=== PATIENT | male | born 1955 | race Asian ===

== ENCOUNTER → 2018-05-09 19:43 | Emergency (ER) | payer SELFPAY ==
[~2018-05-09 19:43] MED LIST: Aspirin 81 mg CHEW TAB* 81 MG TAB.CHEW PO ONE; Iohexol 350* (CONTRAST) 500 ML MDV IV ONE; Labetalol IV* 5 MG/ML 20 ML VIAL IV PUSH ONE; NS 0.9% 1000 ML* 1,000 ML IV ONE; diPHENhydraMINE IV* 50 MG/ML 1 ml VIAL (BENADRYL) IV ONE
[2018-05-09 20:13] LABS: ABS Basophils 0 10^3/ul (0-0.2); ABS Eosinophils 0 10^3/ul (0-0.6); ABS Lymphocytes 0.9 10^3/ul (1.0-4.8); ABS Monocytes 0.3 10^3/ul (0-0.8); ABS Neutrophils 9.7 10^3/ul (1.5-7.7); ABS Nucleated RBC 0 10^3/ul; Eosinophil % 0.1 % (0-6); Hematocrit 48 % (42-52); Hemoglobin 16.4 g/dl (14.0-18.0); Lymphocyte % 7.9 % (25-47); Mean Corpuscular HGB Conc 35 g/dl (31-36); Mean Corpuscular Hemoglobin 31 pg (27-31); Mean Corpuscular Volume 90 fL (80-94); Mean Platelet Volume 7.1 um3 (7.4-10.4); Nucleated Red Blood Cells % 0; Platelet Count 241 10^3/ul (150-450); Red Blood Count 5.26 10^6/ul (4.00-5.40); Red Cell Distribution Width 13 % (10.5-15); White Blood Count 10.9 10^3/ul (3.5-10.8)
[2018-05-09 20:22] LABS: EGFR Non-African American 91.9 (>60)
--- NOTE | 2018-05-09 21:13 | RAD ---
INDICATION: Neurologic changes code lambert. COMPARISON: There are no prior studies available for comparison. TECHNIQUE: Contiguous axial sections of the brain were obtained from the skull base to the vertex without contrast. FINDINGS: The ventricles, cisterns and sulci are within normal limits. There is a small area of decreased density located lateral to the caudate nucleus head on the left side possibly representing a small lacunar infarct or prominent perivascular space. No other focal abnormalities are seen. No mass effect is present. There is no evidence for hemorrhage. No significant focal osseous abnormality is seen. The visualized portion of the paranasal sinuses and mastoid air cells appear clear. The results of this exam were called to the referring clinician at 2105 hours. IMPRESSION: 1. NO EVIDENCE FOR GROSS ACUTE INFARCT, MASS EFFECT OR HEMORRHAGE. 2. POSSIBLE SMALL OLD LACUNAR INFARCT VERSUS PROMINENT PERIVASCULAR SPACE ADJACENT TO THE LEFT CAUDATE NUCLEUS.
[2018-05-09 21:22] LABS: INR 0.93 (0.77-1.02)
--- NOTE | 2018-05-09 21:41 | RAD ---
INDICATION: Neurologic changes, code lambert. COMPARISON: There are no prior studies available for comparison. TECHNIQUE: A portable view of the chest was obtained. FINDINGS: Cardiac and mediastinal contours appear to be within normal limits. The lungs are underinflated and clear. No pleural effusion is seen. IMPRESSION: NO EVIDENCE FOR ACUTE DISEASE.
--- NOTE | 2018-05-09 22:22 | RAD ---
INDICATION: Ataxia. COMPARISON: Comparison is made with a prior CT of the brain of the same day. TECHNIQUE: A CT angiogram of the head and neck was performed following intravenous injection of 80 ml of Omnipaque 350 nonionic contrast. Contiguous axial sections were obtained from the thoracic inlet through the skull vertex. Images were reconstructed in the coronal and sagittal planes and in a 3-D volume rendered format. The distal cervical internal carotid artery diameter is used as the denominator for stenosis measurement. FINDINGS: RIGHT CAROTID: The common and internal carotid arteries appear patent without evidence for stenosis. LEFT CAROTID: The common and internal carotid arteries appear patent without evidence for stenosis. VERTEBRALS: There is a dominant left vertebral artery. The right vertebral artery is very small in size and appears occluded distally at the skull base. Contrast is seen distal to the occlusion at the confluence with the left vertebral artery. The distal left vertebral artery just above the skull base appears slightly irregular and is difficult to evaluate with dense calcific plaque although there is suggestion of at least moderate grade narrowing. CTA BRAIN: The internal carotid, anterior and middle cerebral arteries appear patent without evidence for high-grade stenosis or occlusion. The basilar artery appears widely patent although slightly small in caliber. The posterior cerebral arteries appear patent without evidence for high-grade stenosis or occlusion. No aneurysm or vascular malformation is seen. NECK: No significant enlarged lymph nodes are seen within the neck. The thyroid, parotid and submandibular glands appear to be within normal limits. The lung apices appear clear. The paranasal sinuses and mastoid air cells appear clear IMPRESSION: 1. NO EVIDENCE FOR HEMODYNAMICALLY SIGNIFICANT CAROTID STENOSIS. 2. THE DISTAL RIGHT VERTEBRAL ARTERY APPEARS OCCLUDED. THERE IS A DOMINANT LEFT VERTEBRAL ARTERY. THERE APPEARS TO BE AT LEAST MODERATE GRADE NARROWING OF THE DISTAL LEFT VERTEBRAL ARTERY AT THE SKULL BASE. EVALUATION OF THE ARTERY IS LIMITED DUE TO DENSE CALCIFIC PLAQUE. AN MRA OF THE BRAIN MAY BE HELPFUL IN FURTHER CHARACTERIZATION. CPT II Codes: 3100F
--- NOTE | 2018-05-09 22:35 | ED ---
Luis Yen Devyn, scribed for Lavon Mancilla MD on 05/09/18 at 2033 . Dizziness - HPI Summary HPI Summary: This patient is a 62 year old M BIBA with a chief complaint of light-headed dizziness since 6 days ago. Pt thought his symptoms were from jet lag but became worried when it did not go away. Pt was hypertensive upon arrival. Patient reports vomiting and right sided numbness. Patient denies nausea, CP, trouble breathing, Diarrhea, head injury, ALVARADO, vision changes, or calf pain and edema. Symptoms aggravated by sitting up. Symptoms alleviated by laying down. Pt is visiting from [facility], [place] to attend his daughters wedding. Meclizine today made symptoms worse. Pt takes allopurinol for gout and antihistamines to treat gerneal erythema. Pt has no PMHx of CAD and takes no medication for BP. SHx of social EtOH use. Pt denies smoking. - History Of Current Complaint Stated Complaint: GENERAL ILLNESS Hx Obtained From: Patient Onset/Duration: Still Present Timing: Constant Severity Initially: Moderate Severity Currently: Moderate Character: Lightheaded, Weak, Dizzy - Allergies/Home Medications Allergies/Adverse Reactions: Allergies Allergy/AdvReac Type Severity Reaction Status Date / Time Penicillins Allergy Unknown Verified 05/09/18 19:54 Reaction Details Home Medications: Home Medications Allopurinol TAB* 100 mg PO DAILY 05/09/18 [History Confirmed 05/09/18] ZyrTEC 10 MG TAB* 10 mg PO DAILY 05/09/18 [History Confirmed 05/09/18] PMH/Surg Hx/FS Hx/Imm Hx Endocrine/Hematology History: Reports: Other Endocrine/Hematological Disorders - chronic skin redness Denies: Hx Diabetes Cardiovascular History: Denies: Hx Hypertension Musculoskeletal History: Reports: Hx Gout EENT History: Denies: Hx Deafness Infectious Disease History: No Infectious Disease History: Reports: Traveled Outside the [place] in Last 30 Days - from [facility], [place] - Family History Known Family History: Negative: Cardiac Disease - Social History Alcohol Use: Occasionally Substance Use Type: Reports: None Hx Tobacco Use: No Smoking Status (MU): Never Smoked Tobacco Review of Systems Negative: Other - vision changes Positive: Other - hypertensive. Negative: Chest Pain Negative: Shortness Of Breath Negative: Diarrhea, Nausea Neurological: Other - lightheaded dizziness Negative: Headache All Other Systems Reviewed And Are Negative: Yes Physical Exam - Summary Physical Exam Summary: Appearance: Well appearing, no pain distress Skin: warm, dry, reflects adequate perfusion Head/face: normal Eyes: EOMI, CECELIA ENT: normal Neck: supple, non-tender Respiratory: CTA, breath sounds present Cardiovascular: RRR, pulses symmetrical Abdomen: non-tender, soft Bowel Sounds: present Musculoskeletal: normal, strength/ROM intact Neuro: normal, sensory motor intact, A&Ox3, negative hallpike alhaji. GCS: 15 Triage Information Reviewed: Yes Vital Signs On Initial Exam: Initial Vitals Temp Pulse Resp BP Pulse Ox 97.7 F 86 16 196/111 97 05/09/18 19:43 05/09/18 19:43 05/09/18 19:43 05/09/18 19:43 05/09/18 19:43 Vital Signs Reviewed: Yes Diagnostics - Vital Signs Vital Signs Temp Pulse Resp BP Pulse Ox 05/09/18 20:15 91 19 179/102 98 05/09/18 20:00 84 20 97 05/09/18 19:54 19 05/09/18 19:43 97.7 F 86 16 196/111 97 - Laboratory Lab Results: Lab Results 05/09/18 05/09/18 Range/Units 19:58 19:58 WBC 10.9 H (3.5-10.8) 10^3/ul RBC 5.26 (4.00-5.40) 10^6/ul Hgb 16.4 (14.0-18.0) g/dl Hct 48 (42-52) % MCV 90 (80-94) fL MCH 31 (27-31) pg MCHC 35 (31-36) g/dl RDW 13 (10.5-15) % Plt Count 241 (150-450) 10^3/ul MPV 7.1 L (7.4-10.4) um3 Neut % (Auto) 89.0 H (38-83) % Lymph % (Auto) 7.9 L (25-47) % Bay % (Auto) 2.7 (0-7) % Eos % (Auto) 0.1 (0-6) % Baso % (Auto) 0.3 (0-2) % Absolute Neuts (auto) 9.7 H (1.5-7.7) 10^3/ul Absolute Lymphs (auto) 0.9 L (1.0-4.8) 10^3/ul Absolute Monos (auto) 0.3 (0-0.8) 10^3/ul Absolute Eos (auto) 0 (0-0.6) 10^3/ul Absolute Basos (auto) 0 (0-0.2) 10^3/ul Absolute Nucleated RBC 0 10^3/ul Nucleated RBC % 0 Sodium 132 L (135-145) mmol/L Potassium 4.3 (3.5-5.0) mmol/L Chloride 96 L (101-111) mmol/L Carbon Dioxide 25 (22-32) mmol/L Anion Gap 11 (2-11) mmol/L BUN 12 (6-24) mg/dL Creatinine 0.85 (0.67-1.17) mg/dL Est GFR ( Amer) 111.3 (>60) Est GFR (Non-Af Amer) 91.9 (>60) BUN/Creatinine Ratio 14.1 (8-20) Glucose 203 H (70-100) mg/dL Calcium 9.2 (8.6-10.3) mg/dL Total Bilirubin 0.50 (0.2-1.0) mg/dL AST 27 (13-39) U/L ALT 35 (7-52) U/L Alkaline Phosphatase 37 (34-104) U/L Troponin I Pending Total Protein 7.1 (6.4-8.9) g/dL Albumin 4.3 (3.2-5.2) g/dL Globulin 2.8 (2-4) g/dL Albumin/Globulin Ratio 1.5 (1-3) Result Diagrams: 05/09/18 19:58 05/09/18 19:58 Lab Statement: Any lab studies that have been ordered have been reviewed, and results considered in the medical decision making process. - Radiology CXR Radiology Interpretation Completed By: Radiologist - IMPRESSION: NO EVIDENCE FOR ACUTE DISEASE. ER Physician reviewed this report. - CT Brain CT Interpretation Completed By: Radiologist - IMPRESSION: 1. NO EVIDENCE FOR GROSS ACUTE INFARCT, MASS EFFECT OR HEMORRHAGE. 2. POSSIBLE SMALL OLD LACUNAR INFARCT VERSUS PROMINENT PERIVASCULAR SPACE ADJACENT TO THE LEFT CAUDATE NUCLEUS. ER Physician reviewed this report - EKG 20:06 Cardiac Rate: NL - [address] Segment: Normal - normal axis, normal interval, j point elevation National Institutes Of Health - NIH Scale Level of Consciousness: Alert/Keenly Responsive Ask Patient the Month and His/Her Age: Both Correct Ask Pt to Open/Close Eyes and Senior Resident Care Director/Release Non-Paretic Hand: Both Correctly Best Gaze (Only Horizontal Eye Movement): Normal Visual Field Testing: No Visual Loss Facial Paresis-Pt to Smile & Close Eyes or Grimace Symmetry: Normal/Symmetrical Motor Function - Right Arm: No Drift-Holds 10 Seconds Motor Function - Left Arm: No Drift-Holds 10 Seconds Motor Function - Right Leg: No Drift-Holds 10 Seconds Motor Function - Left Leg: No Drift-Holds 10 Seconds Limb Ataxia-Must be out of Proportion to Weakness Present: Absent Sensory (Use Pinprick to Test Arms/Legs/Trunk/Face): Normal Best Language (Describe Picture, Name Items): No Aphasia Dysarthria (Read Several Words): Normal Extinction and Inattention: No Abnormality - time 19:50 Total Score: 0 Re-Evaluation - Re-Evaluation First Eval Re-Evaluation Time: 20:50 Comment: Patient states he feels better. Pt states his BP usually runs 120-180 but does not take medication for it. When asked to walk around, pt was ataxic with gait. Second Eval Re-Evaluation Time: 21:10 Comment: Patient only had dizziness until 3 pm today. Then at this point pt experienced some numbness of his face, followed by unsteady gait. Third Eval Re-Evaluation Time: 21:54 Comment: Pt BP 160/101 Dizzy Course/Dx - Course Course Of Treatment: Patient presents with dizziness for one week however he began with numbness in his right side and ataxia at 1500 hrs. today. This was not confirmed to the family was present. Patient responded to IV fluids and Benadryl but when I stood him to walk he was significantly ataxic. This is despite an NIH stroke score of 0. I called the code stroke at this point and CT of the head was negative. I spoke to stroke neurologist at [facility] who recommended CTA. 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 This is likely cause of the patient's symptoms. This is not an intravenous bolus lesion however there is concern that this could extend into the basilar artery. As such stroke neurologist requested the patient transferred to the comprehensive stroke center at [facility]. The patient and family agreed and transfer arrangements were made. Patient's blood pressure stabilized at 169/102. He was given full dose aspirin chewable. He has no issues with swallow. His NIH stroke score remained stable at 0 and he was not walked again. - Diagnoses Differential Diagnosis/HQI/PQRI: Other - TIA, CVA, VVI, posterior circulation stroke, dehydration/jet lag, positional vertigo, labyrinthitis Provider Diagnoses: Vertebral artery embolism, Vertebral basilar insufficiency During the Visit The Following Alert/Code Occurred: Code [place] - at 20:55 - Provider Notifications Discussed Care Of Patient With: Hilton Kebede Time Discussed With Above Provider: 21:19 Instructed by Provider To: Other - discussed pt care with Dr. Kebede, neurology at [facility], and he reccommended a CTA head/neck to look for a cerebellar stroke. - Critical Care Time Critical Care Time: 30-74 min - 60 minutes. Critical care time is exclusive of separately billable procedures Discharge - Sign-Out/Discharge Documenting (check all that apply): Discharge/Admit/Transfer - Discharge Plan Condition: Guarded Disposition: TRANS HIGHER LVL OF CARE FAC Referrals: No Primary Care Phys,NOPCP [Primary Care Provider] - - Billing Disposition and Condition Condition: GUARDED Disposition: Trans Higher Lvl of Care Fac The documentation as recorded by the Luis uribe Devyn accurately reflects the service I personally performed and the decisions made by , Lavon Mancilla MD.
[2018-05-10 00:42] VITALS: BP 170/103
== END | disposition short-term general hospital (02) ==
LOC: ED 19:43
DX: I65.01 Occlusion and stenosis of right vertebral artery (principal); R20.0 Anesthesia of skin; R27.0 Ataxia, unspecified; Z88.0 Allergy status to penicillin
CPT/HCPCS: 36415; 70450; 70496; 70498; 71045; 80053; 80061; 83605; 84484; 85025; 85379; 85610; 85730; 93005; 96361; 96374; 99285; A9270-GY; J1200; Q9967